=== PATIENT | male | born 1985 | race Caucasian/White ===

== ENCOUNTER 2016-05-21 11:14 | Emergency (ER) | payer OTHER ==
[~2016-05-21] VITALS: Ht 177.8 cm; Wt 95.7 kg
[~2016-05-21 11:14] MED LIST: IBUP-1542 PO; TYLENOL
[2016-05-21 11:24] VITALS: Ht 177.8 cm; Wt 95.7 kg
--- NOTE | 2016-05-21 12:34 | ERD ---
ER Documentation Chief Complaint Date/Time DATE: 05/21/16 TIME: 12:31 Chief Complaint bump on genitals x 2 weeks HPI This is a 31-year-old male presenting to the emergency department complaining of a bump on his left side of the penile shaft for the past 2 weeks. Patient states that it felt like a little cyst. He denies any pain. Patient states that yesterday he tried to pop it and it became more of an ulcer now today. Patient denies any fevers, penile discharge, scrotal tenderness. Patient states that he is sexually active with one partner. ROS All systems reviewed and are negative except as per history of present illness. Medications Home Meds Active Scripts Ibuprofen* (Motrin*) 600 Mg Tab, 600 MG PO Q6, #30 TAB Prov:KETURAH CAMPBELL I. [facility] 04/04/15 Ibuprofen* (Ibuprofen*) 600 Mg Tablet, 600 MG PO Q6H Y for PA, #30 TAB Prov:LANEY CORMIER NP 01/15/15 Reported Medications [Tylenol] No Conflict Check 11/25/09 Allergies Allergies: Coded Allergies: No Known Allergies (Verified Allergy, Mild, 11/25/09) PMhx/Soc History of Surgery: No Anesthesia Reaction: No Hx Neurological Disorder: No Hx Respiratory Disorders: No Hx Cardiac Disorders: No Hx Psychiatric Problems: No Hx Miscellaneous Medical Probl: No Hx Alcohol Use: Yes (occasionally) Hx Substance Use: No Hx Tobacco Use: No Smoking Status: Never smoker Physical Exam Vitals Vital Signs Date Time Temp Pulse Resp B/P Pulse Ox O2 Delivery O2 Flow Rate FiO2 05/21/16 11:24 98.6 87 18 131/82 99 Physical Exam General: well-developed/well-nourished, in no apparent distress, non-toxic appearing HENT: NC/AT, bilateral tympanic membrane is normal with good cone of light, nares patent, oropharynx clear without exudates Eyes: Conjunctiva normal, PERRLA, EOMI Neck: Supple, no lymphadenopathy Pulm: CTA bilaterally, no rales, rhonchi, or wheezing heard CV: Normal S1S2, RRR, good capillary refill GI: Soft, non-distended, normal bowel sounds, non-tender : no penile discharge, no testicular masses or lesions felt 0.5cm x 0.5cm circular plaque on erythematous base Back: No midline tenderness, no masses, No CVAT Ext: No clubbing, cyanosis, or edema Neuro: Alert and Orientated,gait normal Skin: Intact, normal turgor Psych: Normal mood and mentation Results 24 hrs Current Medications Medications (Trade) Dose Ordered Sig/Светлана Route PRN Reason Start Time Stop Time Status Last Admin Dose Admin Penicillin G Benzathine (Bicillin La) 2,400,000 units ONCE STAT IM 05/21/16 12:36 05/21/16 12:40 DC Procedures/MDM This is a 31-year-old male presenting to the emergency room with a painless lesion on the left side of the shaft of penis the past 2 weeks. Patient states it started off looking like a bump or cyst and he tried to pop it became common ulcer. Differentials include but not limited to folliculitis, cyst, syphilis, chancroid, LGV, staph infection. I have a low suspicion that this may be syphilis due to patient's history however cannot be completely ruled out at this time since the RPR will come back tomorrow. I discussed with the patient and decided to empirically treat patient for syphilis. Patient will follow up with his primary care physician for further action management. Patient appears well, is afebrile. Patient stable for discharge. Discussed return to the ER for any worsening signs or symptoms. He understands and agrees with plan Departure Diagnosis: Primary Impression: Penile lesion Condition: Stable DAKOTA WHEELER PA-C May 21, 2016 12:34
[2016-05-21] MEDS ORDERED: PENICILLIN G BENZ 2.4 MIL UNIT SYG IM STA (12:36)
== END 2016-05-21 13:29 | disposition home or self-care (01) ==
LOC: FTE 11:14
DX: N48.89 Other specified disorders of penis (principal)
CPT/HCPCS: 86592; 96372; J0561; Z7502

== ENCOUNTER 2016-09-14 20:52 | Emergency (ER) | END 2016-09-14 23:19 | disposition home or self-care (01) | DX: M25.521 Pain in right elbow (principal); M79.641 Pain in right hand | CPT/HCPCS: 73080; 73130; Z7502 ==

== ENCOUNTER 2016-12-11 00:03 | Emergency (ER) | payer OTHER ==
[~2016-12-11] VITALS: Ht 177.8 cm; Wt 94.5 kg
[~2016-12-11 00:03] MED LIST changes: +TRAM50TA2 PO
[2016-12-11 00:07] VITALS: Ht 177.8 cm; Wt 94.5 kg
[2016-12-11] MEDS ORDERED: FLUORESCEIN STRIP RIGHT EYE ONE (01:00)
[2016-12-11] MEDS ORDERED: TETRACAINE 0.5% 4 ML OPH RIGHT EYE ONE (01:00)
[2016-12-11] MEDS ORDERED: ERYT1OIN6 BOTH EYES (01:46)
--- NOTE | 2016-12-11 01:52 | ERD ---
ER Documentation Chief Complaint Date/Time DATE: 12/11/16 TIME: 01:49 Chief Complaint feels like something is in his R eye HPI 31 year old male comes in with a foreign body in his right eye that flew in while he was doing grinding work on a car today. Patient has a sharp pain and foreign body sensation. Denies visual changes. ROS All systems reviewed and are negative except as per history of present illness. Medications Home Meds Active Scripts Erythromycin (Erythromycin Opth) 3.5 Gm Oint..gm., 1 APPLIC BOTH EYES QID, #1 Prov:JASMIN CHAVEZ PA-C 12/11/16 Tramadol HCl (Tramadol HCl) 50 Mg Tablet, 50 MG PO Q6 Y for SEVERE PAIN LEVEL 7- 10, #20 TAB Prov:LANEY CORMIER [employer] 09/14/16 Ibuprofen* (Motrin*) 600 Mg Tab, 600 MG PO Q6H Y for PAIN AND OR ELEVATED TEMP, #30 TAB Prov:LANEY CORMIER [employer] 09/14/16 Ibuprofen* (Motrin*) 600 Mg Tab, 600 MG PO Q6, #30 TAB Prov:KETURAH CAMPBELL I. [employer] 04/04/15 Ibuprofen* (Ibuprofen*) 600 Mg Tablet, 600 MG PO Q6H Y for PA, #30 TAB Prov:LANEY CORMIER [employer] 01/15/15 Reported Medications [Tylenol] No Conflict Check 11/25/09 Allergies Allergies: Coded Allergies: No Known Allergies (Verified Allergy, Mild, 11/25/09) PMhx/Soc History of Surgery: No Anesthesia Reaction: No Hx Neurological Disorder: No Hx Respiratory Disorders: No Hx Cardiac Disorders: No Hx Psychiatric Problems: No Hx Miscellaneous Medical Probl: No Hx Alcohol Use: Yes (occasionally) Hx Substance Use: No Hx Tobacco Use: No Smoking Status: Never smoker Physical Exam Vitals Vital Signs Date Time Temp Pulse Resp B/P Pulse Ox O2 Delivery O2 Flow Rate FiO2 12/11/16 00:07 97.6 78 20 116/73 99 Physical Exam Const: well-appearing, nontoxic Head: Atraumatic Eyes: Normal Conjunctiva, Injection of the right eye, small foreign body seen in the visual axis, approximately 1MM, negative Gerry sign. ENT: Normal External Ears, Nose and Mouth. Neck: Full range of motion..~ No meningismus. Resp: Clear to auscultation bilaterally Cardio: Regular rate and rhythm, no murmurs Abd: Soft, non tender, non distended. Normal bowel sounds Skin: No petechiae or rashes Back: No midline or flank tenderness Ext: No cyanosis, or edema Neur: Awake and alert Psych: Normal Mood and Affect Results 24 hrs Current Medications Medications (Trade) Dose Ordered Sig/Светлана Route PRN Reason Start Time Stop Time Status Last Admin Dose Admin Fluorescein Sodium (Ffitd-T-Bvbdo) 1 strip ONCE ONCE RIGHT EYE 12/11/16 01:00 12/11/16 01:01 DC Tetracaine HCl (Tetracaine 0.5% Steri-Unit Laurita) 1 drop ONCE ONCE RIGHT EYE 12/11/16 01:00 12/11/16 01:01 DC Procedures/MDM ED course: Q-tip was used and the foreign body was partially removed. There is a small embedded foreign body that can be seen, needle was used to remove if it appears to be embedded. 31-year-old male comes in with a foreign body in the right eye, small piece was able to be removed with the q-tip. Attempted to remove a small embeded foreign body with a needle. Patient was advised to follow with ophthalmology today, for removal foreign body. He will be given erythromycin ointment. No evidence of globe rupture, infection. Departure Diagnosis: Primary Impression: Foreign body, eye Condition: Good Patient Instructions: Foreign Object in the Cornea Referrals: [facility] Hours: Mon - Fri 9:00 AM - 5:00 PM Additional Instructions: Call your [employer] Set Up Operator doctor TODAY for a SAME-DAY APPOINTMENT.Tell the assistant secretary that you were referred from this facility.Call again if your condition worsens before your appointment time. JASMIN CHAVEZ PA-C Dec 11, 2016 01:52
[2016-12-11 02:00] VITALS: BP 120/74; PULSE 81; RESP 16; TEMP 98.3
== END 2016-12-11 02:00 | disposition home or self-care (01) ==
LOC: FTE 00:03
DX: T15.91XA Foreign body on external eye, part unspecified, right eye, initial encounter (principal); X58.XXXA Exposure to other specified factors, initial encounter; Y92.89 Other specified places as the place of occurrence of the external cause
CPT/HCPCS: 65205; Z7502